=== PATIENT | male | born 1955 | race Caucasian/White ===

== ENCOUNTER 2019-02-03 10:51 | Observation (INO) ==
[2019-02-03 11:34] LABS: Basophils # (auto) 0.05 K/uL (0-0.2); Basophils % (auto) 0.7 %; Eosinophils # (auto) 0.14 K/uL (0-0.5); Hematocrit (blood only) 36.4 % (42-52); Hemoglobin 12.2 g/dL (14.0-18.0); Immature Granulocytes # (auto) 0.02 K/uL (0.00-0.02); Immature Granulocytes % (auto) 0.3 %; Lymphocytes # (auto) 2.08 K/uL (1.2-3.4); Lymphocytes % (auto) 29.3 %; Mean Corpuscular Hemoglobin 30.4 pg (25-34); Mean Corpuscular Hgb Conc 33.5 g/dL (32-36); Mean Corpuscular Volume 90.8 fL (80-100); Mean Platelet Volume 9.8 fL (7.4-10.4); Monocytes % (auto) 15.5 %; Neutrophils % (auto) 52.2 %; Platelet Count 256 K/uL (130-400); RDW Coefficient of Variation 15.7 % (11.5-14.5); RDW Standard Deviation 51.5 fL (36.4-46.3); Red Blood Count 4.01 M/uL (4.7-6.1); White Blood Count 7.09 K/uL (4.8-10.8)
--- NOTE | 2019-02-03 11:35 | XRay Report ---
XR chest 1V portable HISTORY: 63 years-old Male Chest Pain acute atypical chest pain COMPARISON: None available TECHNIQUE: Portable AP view of the chest FINDINGS: Cardiac silhouette is mildly enlarged. Mediastinal contours are within normal limits. No pneumothorax , pleural effusion or overt pulmonary edema. Mild subsegmental retrocardiac left basilar opacities ar e noted. 1.6 x 1.8 cm nodular opacity projects over the right lung base. Degenerative changes of the shoulders and spine. IMPRESSION: 1. Minimal retrocardiac left basilar opacities suggest atelectasis or pneumonitis. 2. Indeterminate 1.8 cm nodular opacity of the right lung base. Correlation with nonemergent CT of th e chest recommended. The above report was generated using voice recognition software. It may contain grammatical, syntax o r spelling errors. Electronically signed by: Luigi Dhaliwal M.D. 02/03/2019 11:34 AM
[2019-02-03 11:41] LABS: Alanine Aminotransferase 23 U/L (12-78); Albumin Level 3.8 gm/dl (3.4-5.0); Aspartate Aminotransferase 23 U/L (15-37); BUN Creatinine Ratio 15.9 (10-20); Blood Urea Nitrogen 17 mg/dl (7-18); Calcium 9.7 mg/dl (8.5-10.1); Carbon Dioxide 28 mmol/L (21-32); Chloride 101 mmol/L (98-107); Creatinine Clr Calc Pharmacy 86.3 ml/min; Est GFR (African American) 84.9; Est GFR (Non-African American) 73.3; Glucose 149 mg/dl (70-99); Sodium 137 mmol/L (136-145)
[2019-02-03 11:44] LABS: Albumin Globulin Ratio 0.9 (0.9-2); Alkaline Phosphatase 66 U/L (45-117); Bilirubin,Total 0.3 mg/dl (0.2-1); Globulin 4.1 gm/dl (2.5-4.0); Total Protein 7.9 gm/dl (6.4-8.2); Troponin I < 0.015 ng/ml (0-0.045)
[2019-02-03 11:51] LABS: Partial Thromboplastin Time 26.8 Seconds (21.0-31.0); Prothrombin Time 10.4 Seconds (9.0-12.0)
[2019-02-03 12:43] LABS: Magnesium 2.3 mg/dl (1.8-2.4); Phosphorus 2.6 mg/dl (2.5-4.9); Thyroid Stimulating Hormone 6.17 uIu/ml (0.300-4.500)
[2019-02-03] MEDS ORDERED: POTASSIUM CHLORIDE / WTR 10 MEQ/100 ML PLCT IV STA (12:52)
[2019-02-03] MEDS ORDERED: SODIUM CHLORIDE 0.9% 500 ML IV ONE (12:52)
[2019-02-03 12:54] LABS: T4 Free Thyroxine 0.92 ng/dl (0.8-1.6)
[2019-02-03] MEDS ORDERED: POTASSIUM CHLORIDE 20 MEQ TABCR PO STA (12:54)
--- NOTE | 2019-02-03 14:13 | History & Physical Report ---
Date of Service February 03, 2019 Assessment & Plan (1) Substernal chest pain: Concerning for ACS given HPI and risk factors CXR noted EKG NSR Trop neg x1, serials pending If trop neg, stress ECHO in AM hypoK noted, could contribute CBC WNL, PRP otherwise WNL (2) Hypokalemia: Hx of same Replaced in ED, recheck in AM He notes having labs done about 6months ago and his K was WNL at that time, although he does not know the value. He is uncertain what form of K he takes but it is the type he has always taken from [employer] Only new medication is Victoza, is not listed as causing hypoK (3) Anxiety: Hx of same Hx of lexapro use, but not recently Ativan 0.5mg PRN, generally uses 1-2x/month (4) Type 2 diabetes mellitus: Recently started on Victoza (6mo) with plan of tapering off of metformin Currently on metformin 1 tab (unsure of dose) HS only A1c pending (5) HTN (hypertension): (6) Hyperlipidemia: continue home meds Lipid panel pending (7) BPH (benign prostatic hyperplasia): continue home meds (8) Pulmonary nodule: Pt has hx of R lung base nodule "for years" He has had multiple PET scans that were neg He had bronchoscopy with bx that had neg path. (9) DVT prophylaxis: SCDs History of Present Illness Primary Care Provider: Franco Canas, DO 63 y/o M c/o chest pain. Pt states he went to work around 7a, which is usual for him. Sometime after 8a he had a very stressful work related phone call in which he and the person he was speaking with got into an argument that escalated into yelling. Pt states he felt very anxious after this call and around 9a he started to have crushing chest pain that then radiated into his L UE and L side of his jaw. His chest felt so tight that he was having difficulty taking a deep breath. He developed nausea and later diarrhea, no emesis. His vision was blurry and his anxiety continued to worsen. Pt states he tried to take deep breaths to calm down, but his sx continued. No jocelyn SOB. He states he asked a co-worker to call 911. EMS arrived and pt was given aspirin 81mg x5 and SL nitro. He was told his BP was 196/98. His chest pain started to improve s/p aspirin and nitro. He was given SL nitro two more times on the way to [facility]. He notes a mild pain across his chest, but no further radiation or other sx. He has never had pain like this prior. Pt states that he had a good weekend overall. He had his grandchildren and states they had a good time. He did feel more tired than usual, but he was able to do all of the things he wanted to do. Pt does note that he had a difficult time sleeping last night. He felt that his legs were quite restless and he could not get comfortable. He was having an increased amount of anxiety "my mind just wouldn't shut off". He had PRN ativan, so around 10:30p he took one. It did not help, so he took another around 12:30a and finally was able to sleep. He gets up at 4:30a and did so today, but after taking the ativan late and minimal sleep, he states he was a bit more groggy than usual. Pt denies fever, abd pain, LE pain or swelling. Pt notes he takes potassium daily. He notes having labs done about 6months ago and his K was WNL at that time, although he does not know the value. He is uncertain what form of K he takes but it is the type he has always taken from [employer] Pt has hx of R lung base nodule "for years". He has had multiple PET scans that were neg. He had bronchoscopy with bx that had neg path. Allergies Allergy/AdvReac Type Severity Reaction Status Date / Time No Known Allergies Allergy Mild Unverified 02/03/19 11:53 Home Medications Home Medications Medication Instructions Recorded Confirmed Type amlodipine 2.5 mg PO DAILY 02/03/19 02/03/19 History escitalopram oxalate 10 mg PO DAILY 02/03/19 02/03/19 History hydrochlorothiazide 25 mg PO DAILY 02/03/19 02/03/19 History liraglutide [Victoza 3-Rod] 1.2 mg SUBCUT DAILY 02/03/19 02/03/19 History lorazepam 0.5 mg PO TID PRN 02/03/19 02/03/19 History losartan 100 mg PO DAILY 02/03/19 02/03/19 History tamsulosin 0.8 mg PO QPM 02/03/19 02/03/19 History Past Med/Surg History Medical History (Updated 02/03/19 @ 14:09 by Moira Huitron DO) Anxiety BPH (benign prostatic hyperplasia) HTN (hypertension) Hyperlipidemia Pulmonary nodule Type 2 diabetes mellitus Family History (Updated 02/03/19 @ 14:05 by Moira Huitron DO) Grandfather Myocardial infarction Social History (Updated 02/03/19 @ 14:05 by Moira Huitron DO) Preferred Language: Fijian Communication Ability: Effective Emissions Technician Required: No Beliefs That Will Affect Care: Mosque Mosque Beliefs: lutheran marital status: Current Living Situation: Spouse and Family current occupational status: employed Other Information That Helps Us Care for You: No Feels Safe at Home: Yes Safety Concerns: Feels Safe At This Time Smoking Status: Never smoker Hx Alcohol Use: No Hx Substance Use: No Review of Systems Review of Systems: Pertinent positives and negatives reviewed in HPI--all others negative Physical Exam Constitutional: WD/WN, vitals as above Eyes: normal visual joseph by confrontation and + anicteric sclerae Neck: normal visual inspection and trachea midline Respiratory: normal respiratory effort, lungs clear to auscultation Cardiovascular: Rate/Rhythm: regular rate and regular rhythm Gastrointestinal (Abdomen): Inspection/Auscultation: abdomen not distended Percussion/Palpation: abdomen soft; abdomen nontender Musculoskeletal: Head/Neck/Chest: normocephalic and head atraumatic negative for edema, peripheral pulses intact Skin: no rashes, warm and dry Neurologic: awake; not confused Speech / Cognition: normal speech Psychiatric: A+Ox3, euthymic affect Results & Data Vital Signs (Past 12 Hours) Vital Signs Temp Pulse Resp BP Pulse Ox 02/03/19 12:00 67 14 130/73 94 02/03/19 11:30 73 19 112/99 93 02/03/19 11:00 70 18 146/74 H 96 02/03/19 10:50 36.9 C 73 16 146/74 H 94 Diagnostic Findings CXR: neg for acute ECG Rhythm: normal sinus Code Status & VTE Plan Code Status Full code VTE Prophylaxis Plan VTE Prophylaxis will be ordered: Yes PG Care Time/CCT Total # of Minutes Spent Total Time Spent with Patient: Total time spent is greater than 50% in coordination of care (as documented) at patient's floor/unit and/or counseling patient:
[2019-02-03] MEDS ORDERED: POTASSIUM CHLORIDE / WTR 10 MEQ/100 ML PLCT IV ONE (14:33)
[2019-02-03] MEDS ORDERED: MAGNESIUM HYDROXIDE SUSP 30 ML UDC PO PRN (15:22)
[2019-02-03] MEDS ORDERED: GLUCOSE 10 TABS/TUBE PO PRN (15:22)
[2019-02-03] MEDS ORDERED: GLUCAGON FOR INJ 1 MG VIAL SQ PRN (15:22)
[2019-02-03] MEDS ORDERED: GLUCOSE 40% GEL 15 GM TUBE PO PRN (15:22)
[2019-02-03] MEDS ORDERED: ONDANSETRON INJ 2 MG/ML 2 ML VIAL IV PRN (15:22)
[2019-02-03] MEDS ORDERED: CARBOHYDRATES FOR HYPOGLYCEMIA PO PRN (15:22)
[2019-02-03] MEDS ORDERED: ACETAMINOPHEN 325 MG TAB PO PRN (15:22)
[2019-02-03] MEDS ORDERED: DEXTROSE 50% 50 ML SYRINGE IV PRN (15:22)
[2019-02-03] MEDS: INSULIN ASPART 100 UNITS/ML 3 ML PEN SC SCH ×2 (17:12→20:23)
--- NOTE | 2019-02-03 18:34 | Emergency Department Note ---
Entered by Danii Jensen acting as a scribe for History of Present Illness General Chief complaint: Chest Pain Time Seen by Provider: 02/03/19 11:54 Source: patient History of Present Illness Onset (ago): hour(s) (3.5) Location: chest Radiation: neck and extremity (right arm, right leg) Pain Consistency: + other (episode) Maximum Pain Intensity: 3 Quality: + other ("someone sitting on his chest") Relieved By: + medication (Nitroglycerin, Aspirin) Associated symptoms: + nausea/vomiting (nausea) and + other (diarrhea, dizziness, blurry vision); no diaphoresis The patient is a 63 year old male who presents to the Emergency Room with complaints of an episode of chest pain starting 3.5 hours ago. The patient states that he has been having ongoing stress with work. He states that this morning he got a few phone calls about the issue that have made his stress worse. He reports that during the phone calls he started having left sided chest pain that he describes as someone sitting on his chest that radiated down his left arm and into his neck. He notes that after it was there for a while and started to go into his left thigh. He reports that he went to go to the bathroom and had diarrhea. He notes that on his walk there he noticed that he was dizzy and had blurry vision. He notes that the entire time he was nauseous. He states that he called 911 and when EMS arrived, they gave him Nitroglycerin and Aspirin. He reports that after the medicine, the chest pain went away. The patient notes that he has a history of anxiety, but never has had this before. The patient denies a history of a heart attack, being a smoker, diaphoresis, a history of reflux, a history of stress test, a history of panic attacks, and a family history of heart attacks in 40-50s. Home Medications Home Medications Medication Instructions Recorded Confirmed Type amlodipine 2.5 mg PO DAILY 02/03/19 02/03/19 History escitalopram oxalate 10 mg PO DAILY 02/03/19 02/03/19 History hydrochlorothiazide 25 mg PO DAILY 02/03/19 02/03/19 History liraglutide [Victoza 3-Rod] 1.2 mg SUBCUT DAILY 02/03/19 02/03/19 History lorazepam 0.5 mg PO TID PRN 02/03/19 02/03/19 History losartan 100 mg PO DAILY 02/03/19 02/03/19 History tamsulosin 0.8 mg PO QPM 02/03/19 02/03/19 History Allergies Allergy/AdvReac Type Severity Reaction Status Date / Time No Known Allergies Allergy Mild Unverified 02/03/19 11:53 Past Med/Surg History Medical History Anxiety BPH (benign prostatic hyperplasia) HTN (hypertension) Hyperlipidemia Pulmonary nodule Type 2 diabetes mellitus Family History Grandfather Myocardial infarction Social History Preferred Language: Greenlandic Communication Ability: Effective 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 and A total of 10 systems reviewed and were otherwise negative Physical Exam Vital Signs Vital Signs - 24 hr 02/03/19 10:50 02/03/19 11:00 02/03/19 11:30 Temperature 36.9 C Temperature Source Oral Pulse Rate 73 70 73 Pulse Rate from SpO2 Sensor 70 74 Pulse Rhythm Regular Pulse Strength Normal Respiratory Rate 16 18 19 Respiratory Effort / Characteristics Non-Labored Spontaneous Respiratory Depth Normal Respiratory Pattern Regular Blood Pressure 146/74 H 146/74 H 112/99 Blood Pressure Mean 98 87 103 Blood Pressure Position Lying Pulse Oximetry 94 96 93 Oxygen Delivery Method Room Air Sepsis Recent Fever Within 48 Hours No Sepsis New/Unexplained Change in Mental Status No Sepsis Action Taken by Nursing No Action Required 02/03/19 12:00 02/03/19 12:30 02/03/19 12:31 Temperature Temperature Source Pulse Rate 67 67 67 Pulse Rate from SpO2 Sensor 67 68 66 Pulse Rhythm Pulse Strength Respiratory Rate 14 12 17 Respiratory Effort / Characteristics Respiratory Depth Respiratory Pattern Blood Pressure 130/73 128/73 Blood Pressure Mean 96 79 Blood Pressure Position Pulse Oximetry 94 95 97 Oxygen Delivery Method Sepsis Recent Fever Within 48 Hours Sepsis New/Unexplained Change in Mental Status Sepsis Action Taken by Nursing 02/03/19 13:00 02/03/19 13:01 02/03/19 13:30 Temperature Temperature Source Pulse Rate 68 66 82 Pulse Rate from SpO2 Sensor 67 68 86 Pulse Rhythm Pulse Strength Respiratory Rate 17 19 15 Respiratory Effort / Characteristics Respiratory Depth Respiratory Pattern Blood Pressure 137/72 154/85 H Blood Pressure Mean 84 95 Blood Pressure Position Pulse Oximetry 95 97 95 Oxygen Delivery Method Sepsis Recent Fever Within 48 Hours Sepsis New/Unexplained Change in Mental Status Sepsis Action Taken by Nursing GENERAL: Awake, alert, well-appearing, in no distress HENT: Normocephalic, atraumatic. Oropharynx with dry mucous membranes and otherwise unremarkable. . EYES: Normal conjunctiva. Sclera non-icteric. NECK: Supple. No nuchal rigidity. FROM. No JVD. RESPIRATORY: Clear to auscultation bilaterally. CARDIAC: Regular rate, normal rhythm. Extremities warm and well perfused. Pulses equal. ABDOMEN: Soft, non-distended. No tenderness to palpation. No rebound or guarding. No masses. RECTAL: Deferred. MUSCULOSKELETAL: Chest examination reveals no tenderness. The back is symmetrical on inspection without obvious abnormality. There is no CVA tenderness to palpation. No joint edema. LOWER EXTREMITIES: Calves are equal size bilaterally and non-tender. No edema. No discoloration. NEURO: Normal sensorium. No sensory or motor deficits noted. SKIN: No rash or jaundice noted. Course Course 1239: The patient was evaluated in room C10. A complete history and physical exam was performed. I discussed the patient's test results and treatment plan with him at this time. He verbally agrees and understands. 1305: I discussed the patient's case with Dr. Huitron- [facility] Hospitalist. She will evaluate the patient for further management. Administered Medications Insulin Aspart (Novolog Flexpen) 0 units SC ACHS SIMI Stop: 03/05/19 16:29 Last Admin: 02/03/19 20:23 Dose: Not Given Documented by: [id number] Admin: 02/03/19 17:12 Dose: 3 units Documented by: [id number] Cosigned by: [id number] Lorazepam (Ativan) 0.5 mg PO TID PRN PRN Reason: Anxiety Stop: 03/05/19 15:21 Last Admin: 02/03/19 20:22 Dose: 0.5 mg Documented by: [id number] Tamsulosin HCl (Flomax) 0.8 mg PO QPM SIMI Stop: 03/05/19 20:59 Last Admin: 02/03/19 20:21 Dose: 0.8 mg Documented by: [id number] Discontinued Medications Sodium Chloride (Nss) 500 mls @ 999 mls/hr IV .Q31M ONE Stop: 02/03/19 13:22 Last Infusion: 02/03/19 15:59 Dose: 200 mls/hr Documented by: [id number] Admin: 02/03/19 13:28 Dose: 200 mls/hr Documented by: [id number] Potassium Chloride (K Layo / Wtr) 10 meq in 100 mls @ 100 mls/hr IV Q1H STA Stop: 02/03/19 13:51 Last Infusion: 02/03/19 14:32 Dose: 0 mls/hr Documented by: [id number] Admin: 02/03/19 13:27 Dose: 100 mls/hr Documented by: [id number] Potassium Chloride (K Layo / Wtr) 10 meq in 100 mls @ 100 mls/hr IV ONE ONE Stop: 02/03/19 15:32 Last Infusion: 02/03/19 15:51 Dose: 100 mls/hr Documented by: [id number] Admin: 02/03/19 14:30 Dose: 100 mls/hr Documented by: [id number] Potassium Chloride (Klor-Con M20) 40 meq PO NOW STA Stop: 02/03/19 12:55 Last Admin: 02/03/19 13:28 Dose: 40 meq Documented by: [id number] Medical Decision Making Differential Diagnosis Differential diagnoses includes but is not limited to acute coronary syndrome, myocardial infarction, pericarditis, pulmonary embolus, aortic dissection, pneumonia, pneumothorax, musculoskeletal, shingles, esophageal. Medical Records Attestation: I reviewed the patient's medical records. Home Medications Current Medication List: was personally reviewed by me Laboratory Data Attestation: I reviewed the patient's lab results. Result diagrams: 02/03/19 10:35 02/03/19 10:35 Lab Results 02/03/19 02/03/19 02/03/19 Range/Units 10:35 10:35 10:35 WBC 7.09 (4.8-10.8) K/uL RBC 4.01 L (4.7-6.1) M/uL Hgb 12.2 L (14.0-18.0) g/dL Hct 36.4 L (42-52) % MCV 90.8 (80-100) fL MCH 30.4 (25-34) pg MCHC 33.5 (32-36) g/dL RDW Std Deviation 51.5 H (36.4-46.3) fL RDW Coeff of Sondra 15.7 H (11.5-14.5) % Plt Count 256 (130-400) K/uL MPV 9.8 (7.4-10.4) fL Immature Gran % (Auto) 0.3 % Neut % (Auto) 52.2 % Lymph % (Auto) 29.3 % [place] % (Auto) 15.5 % Eos % (Auto) 2.0 % Baso % (Auto) 0.7 % Immature Gran # (Auto) 0.02 (0.00-0.02) K/uL Neut # (Auto) 3.70 (1.4-6.5) K/uL Lymph # (Auto) 2.08 (1.2-3.4) K/uL [place] # (Auto) 1.10 H (0.11-0.59) K/uL Eos # (Auto) 0.14 (0-0.5) K/uL Baso # (Auto) 0.05 (0-0.2) K/uL PT 10.4 (9.0-12.0) Seconds INR 1.0 (0.9-1.1) APTT 26.8 (21.0-31.0) Seconds PTT Ratio 1.0 Sodium 137 (136-145) mmol/L Potassium 3.0 L (3.5-5.1) mmol/L Chloride 101 (98-107) mmol/L Carbon Dioxide 28 (21-32) mmol/L Anion Gap 8.0 (3-11) BUN 17 (7-18) mg/dl Creatinine 1.06 (0.6-1.4) mg/dl Est Cr Clr Drug Dosing 86.3 ml/min Est GFR ( Amer) 84.9 Est GFR (Non-Af Amer) 73.3 BUN/Creatinine Ratio 15.9 (10-20) Glucose 149 H (70-99) mg/dl Calcium 9.7 (8.5-10.1) mg/dl Phosphorus (2.5-4.9) mg/dl Magnesium (1.8-2.4) mg/dl Total Bilirubin 0.3 (0.2-1) mg/dl AST 23 (15-37) U/L ALT 23 (12-78) U/L Alkaline Phosphatase 66 (45-117) U/L Troponin I < 0.015 (0-0.045) ng/ml Total Protein 7.9 (6.4-8.2) gm/dl Albumin 3.8 (3.4-5.0) gm/dl Globulin 4.1 H (2.5-4.0) gm/dl Albumin/Globulin Ratio 0.9 (0.9-2) TSH (0.300-4.500) uIu/ml Free T4 (0.8-1.6) ng/dl 02/03/ Range/Units 10:35 WBC (4.8-10.8) K/uL RBC (4.7-6.1) M/uL Hgb (14.0-18.0) g/dL Hct (42-52) % MCV (80-100) fL MCH (25-34) pg MCHC (32-36) g/dL RDW Std Deviation (36.4-46.3) fL RDW Coeff of Sondra (11.5-14.5) % Plt Count (130-400) K/uL MPV (7.4-10.4) fL Immature Gran % (Auto) % Neut % (Auto) % Lymph % (Auto) % [place] % (Auto) % Eos % (Auto) % Baso % (Auto) % Immature Gran # (Auto) (0.00-0.02) K/uL Neut # (Auto) (1.4-6.5) K/uL Lymph # (Auto) (1.2-3.4) K/uL [place] # (Auto) (0.11-0.59) K/uL Eos # (Auto) (0-0.5) K/uL Baso # (Auto) (0-0.2) K/uL PT (9.0-12.0) Seconds INR (0.9-1.1) APTT (21.0-31.0) Seconds PTT Ratio Sodium (136-145) mmol/L Potassium (3.5-5.1) mmol/L Chloride (98-107) mmol/L Carbon Dioxide (21-32) mmol/L Anion Gap (3-11) BUN (7-18) mg/dl Creatinine (0.6-1.4) mg/dl Est Cr Clr Drug Dosing ml/min Est GFR ( Amer) Est GFR (Non-Af Amer) BUN/Creatinine Ratio (10-20) Glucose (70-99) mg/dl Calcium (8.5-10.1) mg/dl Phosphorus 2.6 (2.5-4.9) mg/dl Magnesium 2.3 (1.8-2.4) mg/dl Total Bilirubin (0.2-1) mg/dl AST (15-37) U/L ALT (12-78) U/L Alkaline Phosphatase (45-117) U/L Troponin I (0-0.045) ng/ml Total Protein (6.4-8.2) gm/dl Albumin (3.4-5.0) gm/dl Globulin (2.5-4.0) gm/dl Albumin/Globulin Ratio (0.9-2) TSH 6.170 H (0.300-4.500) uIu/ml Free T4 0.92 (0.8-1.6) ng/dl Imaging Data Radiologist's Impression: Radiology results as stated below per my review and the radiologist's interpretation: XR chest 1V portable HISTORY: 63 years-old Male Chest Pain acute atypical chest pain COMPARISON: None available TECHNIQUE: Portable AP view of the chest FINDINGS: Cardiac silhouette is mildly enlarged. Mediastinal contours are within normal limits. No pneumothorax, pleural effusion or overt pulmonary edema. Mild subsegmental retrocardiac left basilar opacities are noted. 1.6 x 1.8 cm nodular opacity projects over the right lung base. Degenerative changes of the shoulders and spine. IMPRESSION: 1. Minimal retrocardiac left basilar opacities suggest atelectasis or pneumonitis. 2. Indeterminate 1.8 cm nodular opacity of the right lung base. Correlation with nonemergent CT of the chest recommended. The above report was generated using voice recognition software. It may contain grammatical, syntax or spelling errors. Electronically signed by: Luigi Dhaliwal M.D. 02/03/2019 11:34 AM ECG Data Attestation: I personally reviewed and interpreted this ECG as follows: Indication: + chest pain Rate (beats per minute): 73 Rhythm: + normal sinus ECG [place]: + Normal ECG ST segments: no ST depression and no ST elevation ECG Findings: + Other (QT-c 440, QRS 100); no PACs and no PVCs Comparison ECG Date: no prior available Blood Pressure Blood Pressure Findings: Elevated blood pressure Blood Pressure Disposition: further management by hospitalist CHRITSINA Narrative The patient is a pleasant 63-year-old gentleman with a past medical history of NIDDM 2, hypertension, hyperlipidemia who presents emergency department with acute onset substernal chest pressure with radiation to his shoulder with nausea that began at 9 AM and subsequently resolved after being evaluated by EMS and given aspirin and nitro per hpi. On arrival patient is in no acute distress, afebrile stable vital signs. EKG without overt acute ischemia. Chest x-ray negative for acute process. WBC and platelets within normal limits. H/H 12.2/36.4 without prior values for comparison. Potassium 3.0 with repletion provided. Chemistry without acidosis. Electrolytes and LFTs otherwise unremarkable. Initial troponin presently 1.5 hours after onset of symptoms was negative/undetectable. However, given the patient's age and description of symptoms Heart score 6 moderate risk. Thus, reasonable to admit the patient for further management. Patient is agreeable with this. Case was discussed with Dr. Moira Huitron, [facility] hospitalist, who will evaluate the patient for admission. Impression & Plan Substernal chest pain, Hypokalemia, H/O: HTN (hypertension), History of diabetes mellitus Discharge Plan Visit Data *Final* Discharge Date/Time: 02/03/19 14:57 Chief Complaint: Chest Pain ED Provider: Dario Hoffman Discharge Problem: Substernal chest pain, Hypokalemia, H/O: HTN (hypertension), History of diabetes mellitus Patient Disposition: Admitted As Inpatient Discharge Instructions Interventions: ED Discharge Assessment Last Done: 02/03/19 14:57 Risk - HEART Scoring HEART Score for Major Cardiac Events History: Highly Suspicious EKG: Normal Age: > 64 Years of Age Risk Factors: >2 Risk Factors Initial Troponin: Normal Limit Total Points: 6 Risk Level: Moderate Risk for Major Adverse Cardiac Event HEART Score Interpretation: Score interpretation (as per derivation study): HEART Adverse Cardiac Score Event Risk Management 0-3 0.9-1.7% In the HEART Score study, these patients were discharged. 4-6 12-16.6% In the HEART Score study, these patients were admitted to the hospital. 7-10 50-65% In the HEART Score study, these patients were candidates for early invasive measurements. Original Source: 1. Darwin AJ, Srinath BE, Fabby DYLAN. Chest pain in the emergency room: value of the HEART score. Net Heart J. 2008; 16(6):191-6. The scribe's documentation has been prepared under my direction and personally reviewed by me in its entirety. I confirm that the note above accurately reflects all work, treatment, procedures, and medical decision making performed by me.
[2019-02-03] MEDS: LORazepam 0.5 MG TAB PO PRN (20:22)
[2019-02-03] MEDS ORDERED: TAMSULOSIN HCL 0.4 MG CAP PO SCH (21:00)
[2019-02-04 07:53] LABS: BUN Creatinine Ratio 17.1 (10-20); Calcium 8.7 mg/dl (8.5-10.1); Creatinine Clr Calc Pharmacy 93.3 ml/min; Est GFR (African American) 93.4; Est GFR (Non-African American) 80.6; Magnesium 2.1 mg/dl (1.8-2.4); Phosphorus 2.8 mg/dl (2.5-4.9); Potassium 3.6 mmol/L (3.5-5.1)
[2019-02-04 08:13] LABS: Estimated Average Glucose 146 mg/dl; Hemoglobin A1C 6.7 % (4.5-5.6)
[2019-02-04] MEDS: INSULIN ASPART 100 UNITS/ML 3 ML PEN SC SCH ×2 (08:19→12:40)
[2019-02-04] MEDS ORDERED: NON-FORMULARY MEDICATION (Liraglutide [Victoza 3-Pak] 1.2 MG) SCH (09:00)
[2019-02-04] MEDS ORDERED: AMLODIPINE BESYLATE 5 MG TAB PO SCH ×2 (09:00)
[2019-02-04] MEDS ORDERED: LOSARTAN POTASSIUM 50 MG TAB PO SCH (09:00)
[2019-02-04] MEDS ORDERED: hydroCHLOROthiazide 25 MG TAB PO SCH (09:00)
[2019-02-04] MEDS ORDERED: PERFLUTREN LIPID MICROSPHERE (DEFINITY) IV ONE (10:20)
[2019-02-04] MEDS: LORazepam 0.5 MG TAB PO PRN (12:54)
--- NOTE | 2019-02-04 15:20 | Discharge Summary ---
Date of Service February 04, 2019 Admission HPI Per Admitting Provider 63 y/o M c/o chest pain. Pt states he went to work around 7a, which is usual for him. Sometime after 8a he had a very stressful work related phone call in which he and the person he was speaking with got into an argument that escalated into yelling. Pt states he felt very anxious after this call and around 9a he started to have crushing chest pain that then radiated into his L UE and L side of his jaw. His chest felt so tight that he was having difficulty taking a deep breath. He developed nausea and later diarrhea, no emesis. His vision was blurry and his anxiety continued to worsen. Pt states he tried to take deep breaths to calm down, but his sx continued. No jocelyn SOB. He states he asked a co-worker to call 911. EMS arrived and pt was given aspirin 81mg x5 and SL nitro. He was told his BP was 196/98. His chest pain started to improve s/p aspirin and nitro. He was given SL nitro two more times on the way to [facility]. He notes a mild pain across his chest, but no further radiation or other sx. He has never had pain like this prior. Pt states that he had a good weekend overall. He had his grandchildren and states they had a good time. He did feel more tired than usual, but he was able to do all of the things he wanted to do. Pt does note that he had a difficult time sleeping last night. He felt that his legs were quite restless and he could not get comfortable. He was having an increased amount of anxiety "my mind just wouldn't shut off". He had PRN ativan, so around 10:30p he took one. It did not help, so he took another around 12:30a and finally was able to sleep. He gets up at 4:30a and did so today, but after taking the ativan late and minimal sleep, he states he was a bit more groggy than usual. Pt denies fever, abd pain, LE pain or swelling. Pt notes he takes potassium daily. He notes having labs done about 6months ago and his K was WNL at that time, although he does not know the value. He is uncertain what form of K he takes but it is the type he has always taken from [employer]. Pt has hx of R lung base nodule "for years". He has had multiple PET scans that were neg. He had bronchoscopy with bx that had neg path. Admission Exam Per Admitting Provider Constitutional: WD/WN, vitals as above Eyes: normal visual joseph by confrontation and + anicteric sclerae Neck: normal visual inspection and trachea midline Respiratory: normal respiratory effort, lungs clear to auscultation Cardiovascular: Rate/Rhythm: regular rate and regular rhythm Gastrointestinal (Abdomen): Inspection/Auscultation: abdomen not distended Percussion/Palpation: abdomen soft; abdomen nontender Musculoskeletal: Head/Neck/Chest: normocephalic and head atraumatic negative for edema, peripheral pulses intact Skin: no rashes, warm and dry Neurologic: awake; not confused Speech / Cognition: normal speech Psychiatric: A+Ox3, euthymic affect Principal Diagnosis Chest Pain Discharge Exam General: Resting comfortably HEENT: NC/AT; PERRLA with EOMI; [place] conjunctiva, MMM. No erythema of posterior pharynx Neck: Supple and nontender Cardiac: RRR Lungs: CTA bilaterally Abdomen: Bowel normoactive X 4; Nontender to palpation Extremities: Warm. No edema present Neuro: No focal weakness Skin: No rash Discharge Data Allergies Allergy/AdvReac Type Severity Reaction Status Date / Time No Known Allergies Allergy Mild Unverified 02/03/19 11:53 Consultations 02/03/19 13:06 ED Decision to Admit Stat 02/03/19 15:22 Consult Health Information Management Stat 02/04/19 07:17 Consult Cardiology Routine Ordered Studies CXR 02/03 Hospital Course (1) Substernal chest pain: Chest pain concerning for ACS due to cardiac risk factors. CXR negative. EKG showed NSR. Trop negative x3. Stress echo this morning was negative. Chest pain was likely related to anxiety from stressful event. Prescribed Ativan (15 tabs) prn prior to discharge. Recommend follow up with PCP to discuss anxiety management. (2) Hypokalemia: In setting of HCTZ therapy. Recommend to hold HCTZ therapy. Can discuss resuming meds with PCP. (3) Anxiety: Uses Ativan prn at home -- provided script for refill on med at discharge. Previously on Lexapro at home. Recommend to f/u with PCP to discuss management. (4) Type 2 diabetes mellitus: Recently started on Victoza (6mo) with plan of tapering off of metformin. Currently on metformin qhs (tapering dose). A1C is 6.7. (5) HTN (hypertension): Continued Losartan as prescribed. D/c HCTZ due to hypokalemia. Increased Amlodipine to 5 mg daily - recommend to take med at night. Discuss med changes with PCP. (6) Hyperlipidemia: Not currently on statin agent. (7) BPH (benign prostatic hyperplasia): Continued home Flomax. (8) Pulmonary nodule: Pt has hx of R lung base nodule "for years" He has had multiple PET scans that were neg He had bronchoscopy with bx that had neg path. (9) DVT prophylaxis: SCDs. Discharged to home on 02/04/19. Total Time Total Time Spent Total Time Spent (In Minutes): >30 minutes Total Time Includes: Examination of the Patient, Discharge Planning, Medication Reconciliation, Communication With Other Providers and Other Discharge Plan Discharge Items Patient Disposition: Home - Self-Care Reason For Visit: CHEAT PAIN Discharge Diagnosis: Chest Pain Condition on Discharge: Fair Activity: As commented below Exercise/Sports: Wait until after follow-up appointment Non-emergency contact: Primary Care Provider Call non-emergency contact if: you have any medication questions, your symptoms worsen, your pain is worsening, your pain is concerning for you and you have a fever Follow-up/Referrals: Franco Canas DO [Primary Care Provider] - Diet: Carb Consistent or DM2 Addtl Attending Provider Instructions: 1. Chest Pain * Please follow up with primary care provider to discuss further management. * Please continue home medications as prescribed. 2. Low potassium levels * Please hold HCTZ at home due to low potassium levels. * Home Amlodipine has been increased to 5 mg for blood pressure management. It is recommended to take Amlodipine in the evening. * Continue Losartan as prescribed. It is recommended to take Losartan in the morning. 3. Anxiety * Please discuss management with your PCP. * Prescription for Ativan was sent to your pharmacy. Pending Studies at Discharge: No Stand-Alone Forms: My [facility], Work/School Release (Inpt) Medications and DC Order Prescriptions: New amlodipine [Norvasc] 5 mg Tablet 5 mg PO DAILY Qty: 30 RF: 2 lorazepam 0.5 mg tablet 0.5 mg PO TID PRN (Reason: Anxiety) Qty: 15 RF: 0 Continued tamsulosin 0.4 mg capsule 0.8 mg PO QPM RF: 0 Victoza 3-Rod 0.6 mg/0.1 mL (18 mg/3 mL) pen injector 1.2 mg SUBCUT DAILY RF: 0 Changed losartan 100 mg tablet 100 mg PO QAM Qty: 0 RF: 0 Discontinued amlodipine 2.5 mg tablet 2.5 mg PO DAILY RF: 0 hydrochlorothiazide 25 mg tablet 25 mg PO DAILY RF: 0 escitalopram oxalate 10 mg tablet 10 mg PO DAILY RF: 0 Discharge Orders: Discharge Order (Routine); Ordered 02/04/19 Ordered By: Jaja Luis Admission Data Admit Date/Time: 02/03/19 13:45 Attending Provider: Ramiro Pringle Admit Provider: Moira Huitron Primary Care Provider: Franco Canas Other Providers: Moira Huitron Other Interventions: Discharge Summary Assessment (RN) Last Done: 02/04/19 16:43 DC Date/Time DO NOT enter until pt leaves facility: 02/04/19 17:15 Supervising Physician Co-Signing Physician Notes During my face to feace encounter, patient was seen and examined. Discussed discharge plan and answered all of the patients questions. In regards to his chest pain, patient had a negative stress test and negative troponin. Pain likely from anxiety, will monitor.
== END 2019-02-04 17:15 | disposition home or self-care (01) ==
LOC: 2W 10:51 → ED 10:51 → SUATTDRO 13:45 → 2W 14:57